=== PATIENT | male | born 1955 | race Caucasian/White ===

== ENCOUNTER → 2020-10-06 | Outpatient (CLI) | payer MEDICAID ==
--- NOTE | 2020-10-08 04:31 | MR ---
EXAMINATION TYPE: MR knee LT wo con DATE OF EXAM: 10/06/2020 COMPARISON: None HISTORY: Medial left knee pain Multiplanar multiecho imaging of the left knee with no contrast. There is small knee joint effusion. There is horizontal tear through the posterior horn of the latera l meniscus seen on proton density image 16. There is some truncation and deformity of the posterior h orn medial meniscus. There is intact collateral ligaments. There is minimal increased signal in the s ubchondral medial tibial condyle consistent with edema. There is small popliteal cyst. This measures 2 x 1 cm x 3 cm. The patella is intact. I see no fracture line. The anterior and posterior cruciate ligaments appear intact. There is some narrowing of the medial supriya int space of the knee. IMPRESSION: Osteoarthritis in the medial joint space. Minimal subchondral edema in the medial tibial condyle. Com plex extensive tear of the posterior horn medial meniscus. Horizontal tear through the posterior horn of the lateral meniscus No evidence of ligamentous tear. Small knee joint effusion. Popliteal cyst.
== END | disposition home or self-care (01) ==
LOC: RADMRIMAIN 13:09
PROVIDERS: ATTEND Orthopaedic Surgery Sports Medicine
DX: M17.12 Unilateral primary osteoarthritis, left knee (principal); M23.322 Other meniscus derangements, posterior horn of medial meniscus, left knee; M23.352 Other meniscus derangements, posterior horn of lateral meniscus, left knee

== ENCOUNTER → 2021-08-29 | Outpatient (CLI) | payer MEDICAID ==
--- NOTE | 2021-08-29 15:23 | CT ---
EXAMINATION TYPE: CT left knee - [facility] Protocol DATE OF EXAM: 08/29/2021 COMPARISON: None HISTORY: left knee pain pre-op for replacement CT DLP: 725.[address] of the left lower extremity for [facility] planning FINDINGS: Degenerative changes are seen about the left hip. There is degenerative narrowing medial ti biofemoral joint space with the marginal bony spur. Mild degenerative change about the left ankle. No bony lesions or fractures evident. IMPRESSION: [facility] planning
== END | disposition home or self-care (01) ==
LOC: RADCTMAIN 14:37
PROVIDERS: ATTEND Orthopaedic Surgery
DX: Z01.818 Encounter for other preprocedural examination (principal); M17.12 Unilateral primary osteoarthritis, left knee

== ENCOUNTER → 2021-08-29 | Outpatient (CLI) | payer MEDICAID ==
[2021-08-29 15:30] LABS: INR 0.9 (<1.2); Partial Thromboplastin Time 23.8 sec (22.0-30.0); Prothrombin Time 10.2 sec (9.0-12.0)
[2021-08-29 22:50] LABS: HCT 48.4 % (39.6-50.0); HGB 15.8 g/dL (13.0-17.0); MCH 28.8 pg (27.0-32.0); MCHC 32.6 g/dL (32.0-37.0); MCV 88.3 fL (80.0-97.0); Mean Platelet Volume 11.4 fL (9.5-12.2); NRBC Per 100 WBC 0 /100 WBCS (0.0-0.0); Platelet Count 157 X 10*3/uL (140-440); RBC 5.48 X 10*6/uL (4.40-5.60); RDW 12.5 % (11.5-14.5); WBC 6.65 X 10*3/uL (4.50-10.00)
[2021-08-29 23:06] LABS: African American GFR (CKD) 88.6 (60.0-200.0); Albumin 4.4 g/dL (3.8-4.9); Albumin/Globulin Ratio 1.96 (1.60-3.17); BUN/Creat Ratio 13.59 Ratio (12.00-20.00); Carbon Dioxide 22.8 mmol/L (20.0-27.5); Globulin 2.2 g/dL (1.6-3.3); Non-African American GFR(CKD) 76.4 (60.0-200.0); Potassium 4.1 mmol/L (3.5-5.5); Total Bilirubin 0.5 mg/dL (0.30-1.20); Total Protein 6.6 g/dL (6.2-8.2)
[2021-08-29 23:07] LABS: Appearance,Urine Clear (Clear); Bilirubin,Urine Negative (Negative); Blood,Urine Negative (Negative); Color,Urine Yellow (Yellow); Ketones,Urine Negative (Negative); Nitrite,Urine Negative (Negative); PH, Urine 6.5 (5.0-8.0); Specific Gravity,Urine 1.008 (1.001-1.030); Urobilinogen,Urine 0.2 (0.2,1.0)
== END | disposition home or self-care (01) ==
LOC: LABPAT 14:10
PROVIDERS: ATTEND Orthopaedic Surgery
DX: Z01.818 Encounter for other preprocedural examination (principal); I49.2 Junctional premature depolarization; I21.4 Non-ST elevation (NSTEMI) myocardial infarction; M17.12 Unilateral primary osteoarthritis, left knee; R94.31 Abnormal electrocardiogram [ECG] [EKG]
CPT/HCPCS: 80053; 81003; 85027; 85610; 85730; 87070; 93005

== ENCOUNTER → 2021-09-04 | Outpatient (CLI) | payer MEDICAID ==
--- NOTE | 2021-09-04 15:48 | CT ---
CT left lower extremity HISTORY: M 25.562, left knee pain Helical acquisition obtained to the left lower extremity. Exam performed for procedure planning purpo ses. Automated exposure control for dose reduction, DLP 503.7 mGycentimeters Correlation to previous exam dated 08/29/2021 Osteophytic changes noted in the left and right hip as on prior exam. There is some sclerosis present at the left sacrum. Hypertrophic changes are present at the sacroiliac joints. Degenerative disc sergio nges are noted in the lower lumbar spine at the lumbosacral junction. Osteoarthritic changes are present in the left knee, there is tricompartmental marginal spurring, alec nt space loss especially in the medial compartment. Ankle joint also shows osteoarthritic change. Spurring present at the talar neck. Small ossific densi ties at the level of the medial malleolus are well corticated and not felt likely to be acute. IMPRESSION: Osteoarthritis, exam performed for procedure planning purposes.
== END | disposition home or self-care (01) ==
LOC: RADCTMAIN 14:00
PROVIDERS: ATTEND Orthopaedic Surgery
DX: M17.12 Unilateral primary osteoarthritis, left knee (principal)

== ENCOUNTER 2021-09-26 10:28 | Observation (INO) | payer MEDICAID ==
[~2021-09-26 10:28] MED LIST: ACETAMINOPHEN TAB 500 MG TAB PO PRN; DEXAMETHASONE SOD PHOSPHATE 10 MG/ML 1 ML VIAL IV PRN; DOCUSATE 100 MG CAP PO PRN; FAMOTIDINE 20 MG/2 ML VIAL IVP PRN; KETOROLAC 15 MG/ML 1 ML VIAL IVP PRN; ONDANSETRON 4 MG/2 ML VIAL IVP PRN; TRANEXAMIC ACID IN NACL,ISO-OS 1,000 MG in SALINE 1 100ML.BAG IVPB PRN; oxyCODONE ER 10 MG TAB.ER.12H PO PRN
[2021-09-26] MEDS ORDERED: LACTATED RINGERS 1,000 ML IV ONE ×2 (11:04→15:42)
[2021-09-26] MEDS ORDERED: MIDAZOLAM 2 MG/2 ML VIAL IVP ONE (11:44)
--- NOTE | 2021-09-26 12:13 | P.ANPRN ---
Procedure Note - Anesthesia - Nerve Block Performed Left Adductor Canal Single Time Out Performed: Yes Date of Procedure: 09/26/21 Procedure Start Time: 11:43 Procedure Stop Time: 11:48 Location of Patient: PreOp Indication: Acute Post-Operative Pain, Requested by Surgeon Sedation Type: Sedate with meaningful contact maintained Preparation: Sterile Prep Position: Supine Needle Types: Pajunk Needle Gauge: 21 Ultrasound used to visualize needle placement: Yes Ultrasound used to observe medication spread: Yes Blood Aspirated: No Pain Paresthesia on Injection Noted: No Resistance on Injection: Normal Image Stored and Saved: Yes Events: Uneventful and Well Tolerated (ropi .5% 25cc plus dexamethasone 4mg)
--- NOTE | 2021-09-26 12:15 | P.ANPRN ---
Procedure Note - Anesthesia - Nerve Block Performed Left iPack Single Time Out Performed: Yes Date of Procedure: 09/26/21 Procedure Start Time: 11:49 Procedure Stop Time: 11:52 Location of Patient: PreOp Indication: Acute Post-Operative Pain, Requested by Surgeon Sedation Type: Sedate with meaningful contact maintained Preparation: Sterile Prep Position: Supine Needle Types: Pajunk Needle Gauge: 21 Ultrasound used to visualize needle placement: Yes Ultrasound used to observe medication spread: Yes Blood Aspirated: No Pain Paresthesia on Injection Noted: No Resistance on Injection: Normal Image Stored and Saved: Yes Events: Uneventful and Well Tolerated (ropi .5% 20cc plus dexamethasone 4mg)
[2021-09-26] MEDS ORDERED: SUCCINYLCHOLINE CHLORIDE 200 MG/10 ML VIAL IV ONE (12:16)
[2021-09-26] MEDS ORDERED: ROPIVACAINE 5 MG/ML 30 ML VIAL ONE (12:16)
[2021-09-26] MEDS ORDERED: TRANEXAMIC ACID IN NACL,ISO-OS 1,000 MG/100 ML BAG ONE (12:16)
[2021-09-26] MEDS ORDERED: ePHEDrine 50 MG/ML 1 ML VIAL ONE (12:16)
[2021-09-26] MEDS ORDERED: NEOSTIGMINE 1 MG/ML 10 ML VIAL ONE (12:16)
[2021-09-26] MEDS ORDERED: LIDOCAINE 2% INJ 20 MG/ML (2 ML VIAL) ONE (12:16)
[2021-09-26] MEDS ORDERED: ROCURONIUM 10 MG/ML (5 ML VIAL) IV ONE (12:16)
[2021-09-26] MEDS ORDERED: GLYCOPYRROLATE 0.2 MG/ML 2 ML VIAL ONE (12:16)
[2021-09-26] MEDS ORDERED: fentaNYL (PF) 50 MCG/ML 2 ML AMP ONE (12:16)
[2021-09-26] MEDS ORDERED: MIDAZOLAM 2 MG/2 ML VIAL ONE (12:16)
[2021-09-26] MEDS ORDERED: PROPOFOL 10 MG/ML 20 ML VIAL IV ONE (12:16)
[2021-09-26] MEDS ORDERED: DEXAMETHASONE SOD PHOSPHATE 4 MG/ML 1 ML VIAL ONE (12:16)
[2021-09-26] MEDS: ROPIVACAINE/EPI/CLONIDINE/KET 50 ML SYRINGE MISCELLANE PRN ×2 (13:15→14:15)
[2021-09-26] MEDS ORDERED: HYDROmorphone 1 MG/ML 1 ML SYRINGE IVP PRN (15:02)
[2021-09-26] MEDS ORDERED: ONDANSETRON 4 MG/2 ML VIAL IVP PRN (15:02)
[2021-09-26] MEDS ORDERED: NALOXONE 0.4 MG/ML 1 ML VIAL IV PRN (15:02)
[2021-09-26] MEDS ORDERED: hydrOXYzine pamoate 25 MG CAP PO PRN (15:02)
[2021-09-26] MEDS ORDERED: HYDROmorphone 0.5 MG/0.5 ML SYRINGE IVP PRN (15:02)
[2021-09-26] MEDS ORDERED: HYDROcodone/APAP 5-325MG 1 EACH TAB PO PRN (15:02)
--- NOTE | 2021-09-26 15:08 | P.OP ---
Date of Procedure: 09/26/21 Preoperative Diagnosis: Left knee osteoarthritis Postoperative Diagnosis: Left knee osteoarthritis Procedure(s) Performed: Left total knee arthroplasty Implants: 1. Rae Triathlon CR Femur Size #6 2. Rae Triathlon Pearson Tibial Base Size #6 3. [place] Triathlon CS poly Size #6, 9-mm Anesthesia: GETA Surgeon: Issac Kidd Mender Knit Goods #1: Chandler Pagan Estimated Blood Loss (ml): 100 IV fluids (ml): 1,200 Pathology: none sent Condition: stable Disposition: PACU Indications for Procedure: I met with the patient preoperatively in the office setting and discussed treatment of their symptomatic knee arthritis. They failed a long course of nonsurgical treatment and elected to proceed with an elective total knee replacement. The patient had mostly medial compartment joint space narrowing on his x-ray and we discussed a partial versus total knee replacement. We discussed the pros and cons of both. We discussed the indications and contraindications for a partial knee replacement. We discussed that our plan would be to go forward with a partial knee replacement and that if he had more widespread arthritis we would convert intraoperatively to a total knee replacement. I discussed the potential risks and complications at length and gave them ample time to ask questions. Risks discussed included: risks from anesthesia, superficial site surgical infection, acute and/or chronic periprosthetic joint infection, delayed wound healing, drainage, wound necrosis, instability, stiffness, stiffness requiring manipulation and/or revision surgery, damage to local blood vessels or nerves, aseptic loosening of the implants, extensor mechanism issues including disruption, patellar maltracking, avascular necrosis etc., continued or worsened knee pain, generalized dissatisfaction with surgical outcome, need for revision surgery, an inability to regain preinjury level of function, DVT, PE, other medical complications, and possibly loss of life or limb. The patient voiced their understanding that while these are the most common complications other less common complications are possible. They provided both their verbal and written consent to go forward with surgery. Operative Findings: In preoperative holding the patient was complaining of diffuse knee pain and pointed to both the medial and lateral compartment of his knee. He stated that he is been having increasing pain along the lateral aspect of his knee down into the calf. After making the arthrotomy of the patient's left knee he had full thickness cartilage loss of both the medial femoral condyle and medial tibial plateau. There was partial-thickness cartilage loss diffusely throughout the lateral femoral condyle and lateral tibial plateau. There was a large area of full-thickness cartilage loss on the trochlea of the femur. There was full articular cartilage with minimal degenerative changes on the undersurface of the patella. The ACL was found to be completely ruptured. After registering the knee with Arun he was found to have 11 of varus. The decision was made to perform a total knee replacement given all of this. Description of Procedure: The patient was identified in preoperative holding and the correct operative extremity was verified and marked with a marker. I reviewed the consent form with the patient at length. All of their questions were answered. The patient was given a block by anesthesia. They were then brought back to the operating room. They were transferred onto the operating room table where a general anesthetic, preoperative antibiotics, and tranexamic acid were administered by anesthesia. A tourniquet was applied to the proximal aspect of the operative extremity. The contralateral extremity was padded under the heel and secured to the operating room table with a nonsterile blue towel and tape. The ipsilateral arm was carefully draped across the patient's chest and secured with a pillow and foam. A post was applied over the lateral aspect of the ipsilateral thigh and a bolster was placed under the ipsilateral foot. I verified that the operative extremity was stable and the knee was flexed to 90. The operative extremity was then placed in a leg goddard, nonsterile drapes were applied, and the extremity was prepped and draped sterilely in the standard sterile fashion. Prior to starting surgery timeout was performed identifying the correct patient, operative extremity, and procedure. The leg was then elevated, exsanguinated with an Esmarch bandage, and the tourniquet was inflated. An anterior midline incision was made sharply with a scalpel. Once I had dissected deep to the superficial fascial layer medial and lateral flaps were elevated. A medial parapatellar arthrotomy was created. Upon opening the knee joint there were diffuse arthritic changes in the medial and lateral compartment. The undersurface of the patella had intact cartilage. The anterior horn of the medial meniscus were sharply released and a medial release was performed around the posterior medial corner of the knee to facilitate retractor placement. The fat pad was excised with electrocautery. The ACL was found to be ruptured. 4 mm pins were then placed within the incision in the medial distal femur and proximal tibia. Arrays were applied to the pins and I verified they were completely tightened. The knee was then registered with the Chogger robot and manipulations in implant position were made to balance the knee and opitmize implant position. After registering the knee with Arun the patient was found to have 11 of varus. Due to the fact that he had 11 of varus, lateral sided joint pain clinically, lateral arthritis, and no ACL the decision was made to proceed with a total knee replacement. Using the Arun robotic saw all cuts were made in accordance with our plan. After all bony fragments had been removed the cuts were verified with the planar probe. The tibia was then subluxed forward and sized. The knee was brought into flexion and a lamina burlap spreader was placed to allow removal of the meniscal remnants both medially and laterally as well as posterior osteophytes. Local anesthetic was then infiltrated around the joint capsule. Trial implants were then placed within the knee. Range of motion and collateral ligament tension was then evaluated. Adjustments in implant size and position were then made accordingly. Once the knee was felt to be appropriately balanced the Arun pins were removed. With the trial components in place, the patella tracked midline. The femur was then drilled and the trial component removed. The trial tibial component was then appropriately rotated, pinned, and prepared for the keel. All trial components were then removed from the knee. The knee was thoroughly irrigated with pulsatile lavage. Cement was prepared via vacuum mixing in a bowl on the back table. I then hand pressurized cement into the femur and tibia and placed the implants beginning with the tibial base tray and poly liner and the femoral component. All extruded cement was removed including from the pin sites. Once the cement had hardened the knee was evaluated one final time with the final polyethylene liner in place. The knee had full extension and flexion and felt stable to varus and valgus stress throughout the arc of motion. The tourniquet was released and with the tourniquet down the patella tracked midline. All bleeders were controlled with electrocautery. The knee was thoroughly irrigated using 3 L of sterile saline and pulsatile lavage. A deep drain was placed. The extensor mechanism was then reapproximated using pop off Vicryl sutures followed by a running barbed suture. The knee was then closed in layers with a 0 strata fix for the deep fascial layer, 2-0 strata fix for the superficial subcutaneous layer and Monocryl and Steri-Strips for the skin. A sterile dressing and drain sponge were applied. I verified that all instrument, sponge, and sharp counts were correct. The patient was then transferred off the operating room table, extubated, and brought to recovery having tolerated the procedure well. Chandler Pagan PA-C was required as a skilled accounting manager assistant controller due to the complexity of the procedure for patient positioning, draping, retraction, placement of hardware, and closure of wound. PLAN: The patient can weight-bear as tolerated on the operative extremity. DVT prophylaxis with aspirin 81 mg twice a day based on preoperative risk stratification. Follow-up in the office in 2 weeks for wound check and x-rays of the knee including an AP and lateral.
--- NOTE | 2021-09-26 15:38 | XR ---
EXAMINATION TYPE: XR knee limited LT DATE OF EXAM: 09/26/2021 COMPARISON: NONE TECHNIQUE: Two views submitted HISTORY: Post op FINDINGS: There is a prosthetic knee in near anatomic alignment. There is soft tissue edema and emphysema. Lee rgical drain noted. IMPRESSION: 1. Postoperative change. Appears in near-anatomic alignment
--- NOTE | 2021-09-26 17:08 | P.CONS ---
History of Present Illness - Reason for Consult Consult date: 09/26/21 - Chief Complaint Patient presented for a left knee arthroplasty - History of Present Illness Patient is a 66-year-old male with a past medical history of osteoarthritis who presents for a left knee arthroplasty. Medicine has been consulted for medical management. Patient is status post surgery. His only concern is that he was hoping that his surgery would be a partial arthroplasty and not a total arthroplasty. Family is wondering what the recovery processes for a total arthroplasty. I told him that I would defer these questions to orthopedic surgery. Patient otherwise denies any complaints. He denies any significant past medical history. Review of Systems 10 ROS reviewed and are negative except as noted in HPI Past Medical History Past Medical History: Osteoarthritis (OA) Additional Past Medical History / Comment(s): occasional dysphagia History of Any Multi-Drug Resistant Organisms: None Reported Past Surgical History: Orthopedic Surgery Additional Past Surgical History / Comment(s): left knee arthroscopy Past Anesthesia/Blood Transfusion Reactions: No Reported Reaction Past Psychological History: No Psychological Hx Reported Smoking Status: Never smoker Past Alcohol Use History: Occasional Past Drug Use History: None Reported - Past Family History Father Family Medical History: No Reported History Medications and Allergies Home Medications Medication Instructions Recorded Confirmed Type Ibuprofen [Motrin] 600 mg PO Q6HR PRN 09/20/21 09/26/21 History Aspirin 81 mg PO BID 30 Days #60 tab 09/26/21 Rx Diclofenac Sodium [Voltaren] 75 mg PO BID 30 Days #60 tab 09/26/21 Rx Docusate [Colace] 100 mg PO BID #60 capsule 09/26/21 Rx HYDROcodone/APAP 5-325MG [[place] 1 - 2 tab PO Q6HR PRN 7 Days #40 09/26/21 Rx 5-325] tab Omeprazole 40 mg PO DAILY 30 Days #30 cap 09/26/21 Rx Allergies Allergy/AdvReac Type Severity Reaction Status Date / Time No Known Allergies Allergy Verified 09/26/21 11:07 Physical Exam Osteopathic Statement: *. No significant issues noted on an osteopathic structural exam other than those noted in the History and Physical/Consult. Vitals: Vital Signs Temp Pulse Pulse Pulse Resp BP BP 09/26/21 16:37 97.8 F 88 16 166/74 09/26/21 16:22 98.0 F 79 17 169/77 09/26/21 15:45 72 16 155/72 09/26/21 15:30 75 16 153/70 09/26/21 15:15 69 16 163/74 09/26/21 15:00 98.2 F 71 16 164/73 09/26/21 11:56 70 18 142/78 09/26/21 11:04 97.8 F 76 18 156/83 Pulse Ox 09/26/21 16:37 98 09/26/21 16:22 99 09/26/21 15:45 99 09/26/21 15:30 93 L 09/26/21 15:15 98 09/26/21 15:00 100 09/26/21 11:56 98 09/26/21 11:04 96 Intake and Output 09/26/21 09/26/21 09/26/21 06:59 14:59 22:59 Intake Total 850 200 Output Total 100 Balance 750 200 Intake: IV 850 200 Output: Estimated Blood Loss 100 Other: Weight 92.2 kg 92.2 kg General: [Alert and oriented, well nourished, no acute distress]. Eye: [PERRL, EOMI, normal conjunctiva]. HENT: [Normocephalic, clear tympanic membranes, normal hearing, moist oral mucosa, no scleral icterus, no sinus tenderness]. Neck: [Supple, non-tender, no carotid bruits, no JVD, no lymphadenopathy]. Lungs: [Clear to auscultation and percussion, non-labored respiration]. Heart: [Normal rate, regular rhythm, no murmur, gallop or edema]. Abdomen: [Soft, non-tender, non-distended, normal bowel sounds, no masses]. Musculoskeletal: [Normal range of motion and strength, no tenderness or swelling, left knee with ice pack]. Skin: [Skin is warm, dry and pink, no rashes or lesions]. Neurologic: [Awake, alert, and oriented X3, CN II-XII intact]. Psychiatric: [Cooperative, appropriate mood and affect]. Assessment and Plan Assessment: Elevated blood pressure Could be due to white coat syndrome. We'll continue to monitor blood pressure. Status post left knee arthroplasty Your orthopedic surgery management Thank you for the consult and we'll continue to follow along with you
[2021-09-26] MEDS: HYDROcodone/APAP 5-325MG 1 EACH TAB PO PRN (19:49)
[2021-09-26] MEDS: ASPIRIN 81 MG PO SCH (20:17)
[2021-09-26] MEDS: LACTATED RINGERS 1,000 ML IV SCH (21:00)
[2021-09-26] MEDS ORDERED: SENNOSIDES-DOCUSATE SODIUM 1 EACH TAB PO SCH (21:00)
[2021-09-26] MEDS: HYDROmorphone 0.5 MG/0.5 ML SYRINGE IVP PRN (22:35)
[2021-09-27] MEDS: HYDROcodone/APAP 5-325MG 1 EACH TAB PO PRN ×2 (02:19→09:18)
[2021-09-27] MEDS: HYDROmorphone 0.5 MG/0.5 ML SYRINGE IVP PRN (05:16)
[2021-09-27] MEDS: LACTATED RINGERS 1,000 ML IV SCH (06:06)
[2021-09-27 07:29] VITALS: BP 144/77; PULSE 86; RESP 17; TEMP 98.3
[2021-09-27] MEDS: ASPIRIN 81 MG PO SCH (08:00)
[2021-09-27 09:04] LABS: Basophils # (A) 0.02 X 10*3/uL (0.00-0.10); Basophils % (A) 0.1 %; Eosinophils # (A) 0 X 10*3/uL (0.04-0.35); Eosinophils % (A) 0 %; HCT 41.8 % (39.6-50.0); HGB 14.1 g/dL (13.0-17.0); Immature Grans, Automated 0.6 %; Lymphocytes % (A) 3.5 %; MCH 29.9 pg (27.0-32.0); MCHC 33.7 g/dL (32.0-37.0); MCV 88.6 fL (80.0-97.0); Mean Platelet Volume 10.8 fL (9.5-12.2); Monocytes # (A) 0.89 X 10*3/uL (0.20-1.00); Monocytes % (A) 5.2 %; NRBC Per 100 WBC 0 /100 WBCS (0.0-0.0); Neutrophils # (A) 15.41 X 10*3/uL (1.80-7.70); Neutrophils % (A) 90.6 %; Platelet Count 171 X 10*3/uL (140-440); RBC 4.72 X 10*6/uL (4.40-5.60); RDW 12.9 % (11.5-14.5); WBC 17.02 X 10*3/uL (4.50-10.00)
--- NOTE | 2021-09-27 11:29 | P.PN ---
Subjective Progress Note Date: 09/27/21 Patient's denies any acute complaints. He will complete physical therapy and he states that he did great. Objective - Vital Signs Vital signs: Vital Signs Temp 98.3 F 09/27/21 07:05 Pulse 86 09/27/21 07:05 Resp 17 09/27/21 07:05 BP 144/77 09/27/21 07:05 Pulse Ox 95 09/27/21 07:05 FiO2 Intake & Output 09/26/21 09/27/21 09/27/21 18:59 06:59 18:59 Intake Total 1590 Output Total 100 900 Balance 1490 -900 Weight 92.2 kg Intake: IV 1050 Oral 540 Output: Drainage 500 Left Knee 500 Urine 400 Estimated Blood Loss 100 Other: Voiding Method Urinal # Voids 2 - Exam General examination - Alert and Oriented 3 in NAD Heart - + S1S2 no murmurs Lungs - Clear to auscultation Abdomen soft NT ND +ve BS Extremities - No edema, left knee surgical incision is intact and dry RADAR SYSTEMS ENGINEER - Moving all 4 extremities spontaneously Psych - Calm and cooperative - Labs CBC & Chem 7: 09/27/21 06:45 Labs: Abnormal Lab Results - Last 24 Hours (Table) 09/27/21 Range/Units 06:45 WBC 17.02 H (4.50-10.00) X 10*3/uL Immature Gran # 0.10 H (0.00-0.04) X 10*3/uL Neutrophils # 15.41 H (1.80-7.70) X 10*3/uL Lymphocytes # 0.60 L (0.90-5.00) X 10*3/uL Eosinophils # 0 L (0.04-0.35) X 10*3/uL Assessment and Plan Assessment: Elevated blood pressure Could be due to white coat syndrome. We'll continue to monitor blood pressure. Blood pressure is better controlled this morning. No need to start any BP meds Leukocytosis likely reactive from surgery Status post left knee arthroplasty Your orthopedic surgery management Patient stable for discharge from a medical standpoint. Thank you for the consult and we'll continue to follow along with you
--- NOTE | 2021-09-27 13:30 | P.DS ---
Providers Date of admission: 09/27/21 08:22 Expected date of discharge: 09/27/21 Attending physician: Issac Kidd Consults: 09/26/21 15:05 Consult Physician Routine Consulting Provider: Christie Hernandez Consult Reason/Comments: medical management Do you want consulting provider notified?: Yes Primary care physician: [place] Hospital Course: This is a 66-year-old male who has been followed in our office by Dr. Kidd for continued complaints of left knee pain due to left knee osteoarthritis. Treatment options were discussed, and patient elected to undergo a left total knee arthroplasty. Patient was seen pre-operatively by Dr. Hooker and cleared for surgery. Patient underwent a left total knee arthroplasty on 09/26/[address] Kidd. The procedure was performed without complication or sequelae. The patient is doing fairly well postoperatively. Vital signs and labs are stable on postoperative day #1. Patient was examined bedside today. Patient states he is overall doing very well and the pain in his left knee is well-controlled. He has been ambulating with a walker with minimal assistance. Patient passed physical therapy. Patient is tolerating his diet well. He is voiding without issues. Patient is comfortable being discharged home today. Patient denies chest pain, shortness of breath, nausea, vomiting, fevers, chills. On examination, the patient is sitting up in bed in no apparent distress. He is alert and orientated 3. On inspection of the left knee, there is a clean, dry, intact Opsite dressing in place. There is no bleeding or drainage the dressing. Patient has good strength and ROM of the left ankle and toes. Motor and sensory function is intact of the left lower extremity. The dorsalis pedis pulse is easily palpable, the left lower extremity is warm and well perfused with brisk capillary refill. Calf is soft and non-tender to palpation. Patient is discharged home with home health care today in good condition, pending medical clearance. Patient will follow-up with Dr. Kidd in the office in 2 weeks. Please see med rec for accurate list of discharge medication. Patient Condition at Discharge: Fair Plan - Discharge Summary Discharge Rx Participant: No New Discharge Prescriptions: New Aspirin 81 mg PO BID 30 Days #60 tab Docusate [Colace] 100 mg PO BID #60 capsule Omeprazole 40 mg PO DAILY 30 Days #30 cap Diclofenac Sodium [Voltaren] 75 mg PO BID 30 Days #60 tab HYDROcodone/APAP 5-325MG [[place] 5-325] 1 - 2 tab PO Q6HR PRN 7 Days #40 tab PRN Reason: Pain Discontinued Ibuprofen [Motrin] 600 mg PO Q6HR PRN PRN Reason: Pain Discharge Medication List Aspirin 81 mg PO BID 30 Days #60 tab 09/26/21 [Rx] Diclofenac Sodium [Voltaren] 75 mg PO BID 30 Days #60 tab 09/26/21 [Rx] Docusate [Colace] 100 mg PO BID #60 capsule 09/26/21 [Rx] HYDROcodone/APAP 5-325MG [[place] 5-325] 1 - 2 tab PO Q6HR PRN 7 Days #40 tab 09/26/21 [Rx] Omeprazole 40 mg PO DAILY 30 Days #30 cap 09/26/21 [Rx] Follow up Appointment(s)/Referral(s): [facility], [NON-STAFF] - As Needed Issac Kidd MD [Medical Doctor] - 10/11/21 10:30 am Patient Instructions/Handouts: Precautions after Total Joint Replacement Surgery (DC), Joint Replacement Surgery (DC), Knee Replacement (DC) Activity/Diet/Wound Care/Special Instructions: Weight bear as tolerated on operative knee with a walker. Keep operative dressing intact until follow-up appointment in the office. Call the office if dressing becomes saturated or falls off. Take pain medications as needed. Take aspirin 81mg BID x 4 weeks for blood clot prevention. Follow-up in the office in two weeks with Dr. Kidd. Call the office with any questions or concerns, Discharge Disposition: HOME WITH HOME HEALTH SERVICES
== END 2021-09-27 12:30 | disposition home health service (06) ==
LOC: OR 10:28 → 4SSUR 14:49 → OR 09-27 08:09 → 4SSUR 09-27 08:22
PROVIDERS: ADMIT Orthopaedic Surgery; ATTEND Orthopaedic Surgery
DX: M17.12 Unilateral primary osteoarthritis, left knee (principal); G89.18 Other acute postprocedural pain; D72.829 Elevated white blood cell count, unspecified; Z79.82 Long term (current) use of aspirin
CPT/HCPCS: 97162; 64447; 64999; 76942; 85025; 73560; 27447; G0378; C1776; C1713; J2250; J0330; J1100 ×2; J2710; J0690 ×2; J2405; J3010; J2795; J1885; J2704; J1170 ×2; J2001